=== PATIENT | female | born 1970 | race Caucasian/White ===

== ENCOUNTER 2018-12-27 23:52 | Emergency (ER) | payer SELFPAY ==
[~2018-12-27] VITALS: Ht 152.4 cm; Wt 86.6 kg
[2018-12-27 23:55] VITALS: Ht 152.4 cm; Wt 86.6 kg
[2018-12-28 00:28] LABS: APTT 28.6 SECONDS (22.8-39.4)
[2018-12-28 00:33] LABS: BASOPHILS 0.4 % (0-2); HEMATOCRIT 45.7 % (36.0-48.0); HEMOGLOBIN 15.2 g/dL (12-16); IMMATURE GRANULOCYTES 0.4 % (0-5); LYMPHOCYTES 37.1 % (15-50); MCH 31.8 pg (26.0-34.0); MCHC 33.3 g/dL (31.0-37.0); MCV 95.6 fL (80.0-100.0); MEAN PLATELET VOLUME 10.1 fL (7.4-10.4); MONOCYTES 6.8 % (2-11); NEUTROPHILS 54.3 % (40-80); RBC 4.78 10x6/uL (4.00-5.40); RDW 12.6 % (11.5-14.5); WBC 7.4 10x3/uL (4.8-10.8)
[2018-12-28 00:34] LABS: INR 0.95 (0.85-1.17); PROTIME 12.2 SECONDS (11.6-15.0)
[2018-12-28 00:37] LABS: ALBUMIN 3.7 g/dL (3.4-5.0); ALKALINE PHOSPHATASE 97 U/L (46-116); ALT (SGPT) 47 U/L (10-68); BILIRUBIN - TOTAL 0.33 mg/dL (0.2-1.3); CALC OSMOLALITY 270 mosm/kg (275-300); CALCIUM 8.7 mg/dL (8.5-10.1); CHLORIDE - SERUM 101 mmol/L (98-107); CREATININE - SERUM 0.8 mg/dL (0.6-1.3); GLUCOSE 116 mg/dL (74-106); POTASSIUM - SERUM 3.5 mmol/L (3.5-5.1); PROTEIN - SERUM 7.8 g/dL (6.4-8.2); SODIUM 136 mmol/L (136-145); UREA NITROGEN 7 mg/dL (7-18); eGFR NON AFRICAN AMERICAN 81 mL/min (90-120)
[2018-12-28 00:49] LABS: CKMB 0.5 U/L (0.0-3.6); CREATINE KINASE 71 UL (21-215); PLATELET COUNT 292 10x3/uL (130-400); THYROID STIMULATING HORMONE 1.01 uIU/mL (0.36-3.74)
[2018-12-28 00:52] LABS: TROPONIN-I < 0.017 ng/mL (0.000-0.060)
[2018-12-28] MEDS ORDERED: PREDNISONE50 MG PO (02:40)
[2018-12-28] MEDS ORDERED: VALTREX1000 MG PO (02:40)
[2018-12-28 02:52] VITALS: BP 133/95
== END 2018-12-28 02:55 | disposition home or self-care (01) ==
LOC: D.ER 23:52
PROVIDERS: Family Medicine
DX: G51.0 Bell's palsy (principal); M25.512 Pain in left shoulder; G81.94 Hemiplegia, unspecified affecting left nondominant side

== ENCOUNTER 2020-05-09 09:32 | Emergency (ER) | payer SELFPAY ==
[~2020-05-09] VITALS: Ht 170.2 cm; Wt 84.1 kg
[~2020-05-09 09:32] MED LIST: PREDNISONE50 MG PO; VALTREX1000 MG PO
[2020-05-09 09:38] VITALS: Ht 170.2 cm; Wt 84.1 kg
[2020-05-09 10:31] LABS: BASOPHILS 0.4 % (0-2); EOSINOPHILS 1.4 % (0-7); HEMATOCRIT 47.3 % (36.0-48.0); IMMATURE GRANULOCYTES 0.6 % (0-5); LYMPHOCYTES 27.8 % (15-50); MCH 31.3 pg (26.0-34.0); MCHC 33.8 g/dL (31.0-37.0); MCV 92.6 fL (80.0-100.0); MEAN PLATELET VOLUME 10.4 fL (7.4-10.4); MONOCYTES 6.3 % (2-11); NEUTROPHILS 63.5 % (40-80); PLATELET COUNT 315 10x3/uL (130-400); RBC 5.11 10x6/uL (4.00-5.40); RDW 13.7 % (11.5-14.5); WBC 10.9 10x3/uL (4.8-10.8)
[2020-05-09 10:37] LABS: APTT 28.3 SECONDS (22.8-39.4); INR 0.94 (0.85-1.17); PROTIME 12.5 SECONDS (11.6-15.0)
[2020-05-09 10:39] LABS: D-DIMER-QUANTITATIVE < 0.27 ug/mLFEU (0.20-0.54)
[2020-05-09 10:42] LABS: CALC OSMOLALITY 272 mosm/kg (275-300); CALCIUM 9.7 mg/dL (8.5-10.1); CARBON DIOXIDE 23.8 mmol/L (21.0-32.0); CHLORIDE - SERUM 100 mmol/L (98-107); GLUCOSE 104 mg/dL (74-106); POTASSIUM - SERUM 3.5 mmol/L (3.5-5.1); SODIUM 136 mmol/L (136-145); UREA NITROGEN 14 mg/dL (7-18); eGFR NON AFRICAN AMERICAN 63 mL/min (90-120)
[2020-05-09 11:02] LABS: ALBUMIN 4.3 g/dL (3.4-5.0); ALKALINE PHOSPHATASE 108 U/L (30-120); ALT (SGPT) 57 U/L (10-68); BILIRUBIN - TOTAL 0.73 mg/dL (0.2-1.3); CKMB 1.3 U/L (0.0-3.6); CREATINE KINASE 152 UL (21-215); MAGNESIUM - SERUM 2.2 mg/dL (1.8-2.4); PROTEIN - SERUM 8.7 g/dL (6.4-8.2); TROPONIN-I < 0.017 ng/mL (0.000-0.060)
[2020-05-09] MEDS ORDERED: TOPROL XL25 MG PO (14:27)
[2020-05-09 15:07] VITALS: BP 139/95
== END 2020-05-09 14:52 | disposition home or self-care (01) ==
LOC: D.ER 09:32
PROVIDERS: Emergency Medicine
DX: I10 Essential (primary) hypertension (principal); R07.9 Chest pain, unspecified; Z72.0 Tobacco use